=== PATIENT | male | born 1985 | race African-American/Black ===

== ENCOUNTER 2021-04-17 11:43 | Outpatient (REF) | payer OTHER, SELFPAY ==
--- NOTE | ~2021-04-17 | XR_ITS ---
EXAMINATION: XR LUMBOSACRAL SPINE CLINICAL INFORMATION: Lower back pain. COMPARISON: None TECHNIQUE: Three views of the lumbosacral spine. 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 Normal alignment. No significant subluxation. No loss of vertebral body or intervertebral disc height. No lytic or blastic osseous lesion. No abnormal soft tissue calcification. 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 No significant subluxation.
[2021-04-17 13:45] LABS: MANUAL DIFF FLAG NO
[2021-04-17 13:48] LABS: Basophils Percent Auto 0.5 % (0-2); Eosinophils Absolute Auto 0.1 X10*3/uL (0.0-0.4); Eosinophils Percent Auto 1.8 % (0-4); Hemoglobin 13.1 g/dl (14.0-18.0); Imm Gran Abs Auto 0.01 X10*3/uL (0.00-0.03); Imm Gran Pct Auto 0.3 % (0.0-0.4); Lymphocytes Absolute Auto 2.3 X10*3/uL (1.2-4.9); Lymphocytes Percent Auto 59.4 % (20-40); Mean Corpuscular HGB Conc 30.5 g/dl (31.0-36.0); Mean Corpuscular Hemoglobin 22.9 pg (27.0-33.0); Mean Corpuscular Volume 75.3 fL (80-98); Mean Platelet Volume 11.7 fL (9.4-12.4); Monocytes Absolute Auto 0.3 X10*3/uL (0.1-1.2); Monocytes Percent Auto 7.8 % (2-11); Neutrophils Absolute Auto 1.2 X10*3/uL (2.0-8.3); Neutrophils Percent Auto 30.2 % (45-73); Platelet Count 245 X10*3/uL (160-400); Red Blood Count 5.71 X10*6/uL (4.60-5.80); Red Cell Distribution Width 14.6 % (11.0-16.0); White Blood Count 3.8 X10*3/uL (4.8-10.8)
[2021-04-17 14:09] LABS: Alanine Aminotransferase 17 U/L (0-40); Albumin Level 4.4 g/dL (3.5-5.0); Alkaline Phosphatase 62 U/L (39-117); Anion Gap 13 (12-20); Aspartate Amino Transferase 21 U/L (5-37); Bilirubin Total 0.5 mg/dL (0.0-1.0); Blood Urea Nitrogen 12 mg/dL (9-16); Calcium 9.8 mg/dL (8.4-10.2); Carbon Dioxide 26 mmol/L (22-29); Chloride 104 mmol/L (96-108); Estimated Glomerular Filt Rate > 60; Glucose Random 79 mg/dL (60-115); Potassium 4.5 mmol/L (3.3-5.1); Sodium 138 mmol/L (135-145); Total Protein 7.5 g/dL (6.5-8.0)
== END 2021-04-17 11:44 | disposition home or self-care (01) ==
LOC: HO.HMGCX 11:43
PROVIDERS: PCP Internal Medicine; Visit Provider Internal Medicine
DX: Z00.01 Encounter for general adult medical examination with abnormal findings (principal); M54.5 Low back pain; R79.89 Other specified abnormal findings of blood chemistry
CPT/HCPCS: 36415; 72100; 80053; 85025

== ENCOUNTER 2022-04-19 11:54 | Outpatient (REF) | payer OTHER, SELFPAY ==
[2022-04-19 13:45] LABS: MANUAL DIFF FLAG NO
[2022-04-19 13:51] LABS: Eosinophils Absolute Auto 0.1 X10*3/uL (0.0-0.4); Eosinophils Percent Auto 2.2 % (0-4); Hematocrit 41.4 % (42.0-52.0); Hemoglobin 13.1 g/dl (14.0-18.0); Imm Gran Abs Auto 0.01 X10*3/uL (0.00-0.03); Imm Gran Pct Auto 0.2 % (0.0-0.4); Lymphocytes Absolute Auto 2.3 X10*3/uL (1.2-4.9); Mean Corpuscular HGB Conc 31.6 g/dl (31.0-36.0); Mean Corpuscular Hemoglobin 23.6 pg (27.0-33.0); Mean Corpuscular Volume 74.7 fL (80.0-98.0); Mean Platelet Volume 11.8 fL (9.4-12.4); Monocytes Absolute Auto 0.4 X10*3/uL (0.1-1.2); Monocytes Percent Auto 10.6 % (2-11); Neutrophils Absolute Auto 1.2 x10*3/uL (2.0-8.3); Platelet Count 237 X10*3/uL (160-400); Red Blood Count 5.54 X10*6/uL (4.60-5.80); Red Cell Distribution Width 14.4 % (11.0-16.0); White Blood Count 4.1 X10*3/uL (4.8-10.8)
[2022-04-19 14:06] LABS: Alanine Aminotransferase 26 U/L (0-40); Albumin Level 4.4 g/dL (3.5-5.0); Alkaline Phosphatase 62 U/L (39-117); Anion Gap 11 (12-20); Aspartate Amino Transferase 36 U/L (5-37); Bilirubin Total 0.5 mg/dL (0.0-1.0); Blood Urea Nitrogen 16 mg/dL (9-16); Calcium 9.4 mg/dL (8.4-10.2); Carbon Dioxide 25 mmol/L (22-29); Chloride 105 mmol/L (96-108); Estimated Glomerular Filt Rate > 60; Glucose Random 79 mg/dL (60-115); Potassium 4.4 mmol/L (3.3-5.1); Sodium 137 mmol/L (135-145); Total Protein 7.4 g/dL (6.5-8.0)
[2022-04-19 14:12] LABS: Troponin-I High Sensitivity 4.4 ng/L (<3.5-35.0)
== END 2022-04-19 11:55 | disposition home or self-care (01) ==
LOC: HO.HMGCLDS 11:54
PROVIDERS: Visit Provider Internal Medicine
DX: R07.9 Chest pain, unspecified (principal); R94.31 Abnormal electrocardiogram [ECG] [EKG]; R00.1 Bradycardia, unspecified
CPT/HCPCS: 36415; 80053; 84484; 85025

== ENCOUNTER → 2022-04-24 08:52 | Outpatient (BNVA) | payer OTHER, SELFPAY | PROVIDERS: PCP Internal Medicine; Visit Provider Internal Medicine Cardiovascular Disease | DX: R94.31 Abnormal electrocardiogram [ECG] [EKG] (principal); R07.9 Chest pain, unspecified; I45.10 Unspecified right bundle-branch block; R00.1 Bradycardia, unspecified | CPT/HCPCS: 93005; 99202 ==

== ENCOUNTER → 2022-05-27 07:32 | Outpatient (REF) | payer OTHER, SELFPAY ==
--- NOTE | 2022-05-27 07:35 | CA_ITS ---
Acquisition Time: 2022-05-27 08:24:20 Total Exercise Time: 00:12:25 Test Indications: CP, ABN EKG Medications: SEE CHART Protocol: SILVANA Max HR: 169 BPM 92% of Pred: 183 BPM Max BP: 142/060 mmHG Max Work Load: 14.4 METS Exercise stress test with exercise 12 min 25 sec achieving 90% MPHR 14.4 METs, without anginal symptoms, with isolated PVCs, with normotensive response to exercise, without EKG changes meeting criteria for ischemia. Test reviewed with Dr Ramírez Referred By: Prabhjot Ramírez Overread By: KIMBERLI CHAN
--- NOTE | 2022-05-27 07:35 | CA_ITS ---
Transthoracic Echocardiogram Patient (Last, First, Middle): Geovany Lisa S Gender: Male Date of : 1985 Age: 37 Procedure Date: 05/27/2022 Procedure Type: Transthoracic Echocardiogram Location: OP Height: 172.72 cm Weight: 80.74 kg BSA: 1.95 m2 Heart Rate: bpm BP: 124 / 68 mmHg [place] Insulator: BARBARA Referring MD: Prabhjot Ramírez MD Provider Relations Consultant: Prabhjot Ramírez MD Symptoms: R07.9 - Chest pain, unspecified Study Quality: Good ECG Rhythm: Sinus Conclusions: - Normal study Findings Left Ventricle Normal left ventricular size, thickness, and systolic function. The visually estimated ejection fraction is between 60-65%. Spectral Doppler is indicative of a normal filling pattern. Peak GLS is -23.4%, which is within normal limits. Right Ventricle Normal right ventricular cavity size and systolic function. Atria Both atria are normal in size. Interatrial shunt cannot be excluded. Aortic Valve Normal aortic valve structure and function. There is no aortic valve stenosis. There is no aortic valve regurgitation. Mitral Valve Normal mitral valve structure and function. There is trace mitral valve regurgitation. There is no mitral valve stenosis. Pulmonic Valve The pulmonic valve is likely normal. Tricuspid Valve Normal tricuspid valve structure. There is trace tricuspid valve regurgitation. The right ventricular systolic pressure is normal. The right ventricular systolic pressure is 20 mmHg. Normal right atrial pressure. There is no evidence of pulmonary hypertension. Great Vessels All visible segments of the aorta are normal in size. The pulmonary artery was not well visualized. Venous The inferior vena cava is normal in size and collapses greater than 50% with inspiration. Pericardium/Pleural There is no evidence of pericardial effusion. Prior Study Comparison No prior study available for comparison. Measurements 2D Linear Measurements IVSd: 1.04 0.6-0.9/0.6-1.0 cm LVIDd: 5.47 3.9-5.3/4.2-5.9 cm LVIDd Index: 2.81 2.4-3.2/2.2-3.1 cm/m2 LVIDs: 3.40 2.0-3.6 cm LVPWd: 1.08 0.7-1.1 cm Ao Root: 3.20 2.1-3.5 cm LA Diam: 3.90 2.7-3.8/3.0-4.0 cm LAIDs Index: 2.00 1.5-2.3 cm/m2 LV Mass: 284.52 67-162/88-224 g LV Mass Index: 145.91 43-95/49-115 g/m2 LVOT Diam: 2.10 3.0+(-)1.3 cm 2D Systolic Function EF 4C: 66.20 >55% EF 2C: 56.30 >55% EF BiP: 60.40 >55% Mitral Valve MV Pk E: 0.77 MV PK A: 0.56 MV Decel Time: 258.00 E/A: 1.40 E'Lateral: 17.60 E'Medial: 8.81 E/E' Med: 8.70 E/E' Lat: 4.40 PHT: 76.00 MVA PHT: 2.89 Decel [place]: 2.97 Aortic Valve AoV Pk Javed: 1.38 AoV Mn Javed: 0.98 AoV VTI: 0.39 AoV Pk Grad: 8.00 Aov Mn Grad: 4.00 RICHIE Cont.VTI: 1.90 LVOT LVOT Pk Javed: 0.83 LVOT Mn Javed: 0.56 LVOT VTI: 0.21 LVOT Pk Grad: 3.00 LVOT Mn Grad: 1.00 LVOT Diam: 2.10 LVOT Area: 3.46 Diastolic Function MV Pk E: 0.77 MV Pk A: 0.56 E/A: 1.40 E'Medial: 8.81 E/E' Med: 8.70 E' Laterial: 17.60 E/E' Lat: 4.40 Right Ventricle TAPSE (mm): 29.00 TVS' Javed: 12.00 Tricuspid Valve TR Pk Javed: 2.07 TR Pk Grad: 17.00 RA Press: 3.00 RVSP: 20.00 Great Vessels Aorta Ao Root-2D: 3.20 2.0-3.7 cm Ao Asc: 3.00 2.1-3.4 cm Pulmonary Valve PV Pk Javed: 0.89 Peak PV Grad: 3.00 Updated in Other Vendor System with Status of Final Prabhjot Ramírez MD electronically signed on 05/27/2022 12:21:07 PM with status of Final
== END ==
LOC: HO.CARD 07:32
PROVIDERS: PCP Internal Medicine; Visit Provider Internal Medicine Cardiovascular Disease
DX: R07.9 Chest pain, unspecified (principal)
CPT/HCPCS: 93017; 93306; 93356

== ENCOUNTER → 2022-06-05 13:44 | Outpatient (BNVA) | payer OTHER, SELFPAY | PROVIDERS: PCP Internal Medicine; Referring Provider Internal Medicine; Visit Provider Internal Medicine Cardiovascular Disease | DX: R07.9 Chest pain, unspecified (principal) | CPT/HCPCS: 99212 ==